=== PATIENT | female | born 1995 | race Hispanic/Latino ===

== ENCOUNTER 2017-03-26 11:52 | Emergency (ER) | payer OTHER ==
[~2017-03-26] VITALS: Ht 162.6 cm; Wt 63.2 kg
[2017-03-26 13:38] LABS: BASO # 0.1 K/mm3 (0.0-0.2); BASO % 0.9 % (0.0-1.0); EOS # 0.2 K/mm3 (0.0-0.50); LARGE UNSTAINED CELL # 0.2 K/mm3 (0.0-0.4); LARGE UNSTAINED CELL % 2.2 % (0.0-4.0); LYMPH % 38.7 % (24.0-44.0); MEAN CORPUSCULAR HGB CONC 34.4 g/dl (32.0-36.5); MONO # 0.5 K/mm3 (0.0-0.8); MONO % 6.3 % (0.0-5.0); NEUTROPHILS # 3.7 K/mm3 (1.8-7.7); NEUTROPHILS % 49.8 % (36.0-66.0); PLATELET COUNT, AUTOMATED 334 k/mm3 (150-450); RED CELL DISTRIBUTION WIDTH 12.1 % (11.5-14.5); WHITE BLOOD COUNT 7.4 K/mm3 (4.0-10.0)
[2017-03-26 13:46] LABS: ANION GAP 8 MEQ/L (8-16); BLOOD UREA NITROGEN 14 MG/DL (7-18); CARBON DIOXIDE LEVEL 24 MEQ/L (21-32); CHLORIDE LEVEL 105 MEQ/L (98-107); CREATININE FOR GFR 0.93 MG/DL (0.55-1.02); GLOMERULAR FILTRATION RATE > 60.0 (>60); GLUCOSE, FASTING 81 MG/DL (70-105); POTASSIUM SERUM 3.6 MEQ/L (3.5-5.1); SODIUM LEVEL 137 MEQ/L (136-145)
[2017-03-26] MEDS ORDERED: ANUS2.5C2 PR (14:26)
[2017-03-26] MEDS ORDERED: ANUS25SU PR (14:34)
[2017-03-26 14:42] VITALS: BP 106/73
[2017-07-09] MEDS ORDERED: PROZ40CA PO (12:39)
== END 2017-03-26 14:38 | disposition home or self-care (01) ==
LOC: M ED 11:52
DX: K64.4 Residual hemorrhoidal skin tags (principal); K62.5 Hemorrhage of anus and rectum; K59.00 Constipation, unspecified; R10.30 Lower abdominal pain, unspecified

== ENCOUNTER → 2018-06-24 18:12 | Emergency (ER) | payer OTHER ==
[2018-06-24 16:05] LABS: HEMOGLOBIN 12.9 g/dl (12.0-15.5); MEAN CORPUSCULAR HEMOGLOBIN 32.8 pg (27.0-33.0); MEAN CORPUSCULAR HGB CONC 34.9 g/dl (32.0-36.5); MEAN CORPUSCULAR VOLUME 94.1 fl (80.0-96.0); PLATELET COUNT, AUTOMATED 300 10^3/uL (150-450); RED BLOOD COUNT 3.93 10^6/uL (4.00-5.40); RED CELL DISTRIBUTION WIDTH 11.7 % (11.5-14.5); WHITE BLOOD COUNT 10.2 10^3/uL (4.0-10.0)
[2018-06-24 16:09] LABS: KETONE, URINE AUTO RFX NEGATIVE (NEGATIVE); LEUKOCYTE ESTERASE UR AUTO RFX NEGATIVE (NEGATIVE); MUCUS, URINE RFX SMALL (NEGATIVE); NITRITE, URINE AUTO RFX NEGATIVE (NEGATIVE); RBC, URINE AUTO RFX 6 /HPF (0-3); SPECIFIC GRAVITY UR AUTO RFX 1.024 (1.002-1.035); SQUAM EPITHELIAL CELL UR AURFX 1 /HPF (0-6); WBC, URINE AUTO RFX 0 /HPF (0-3)
[2018-06-24 16:33] LABS: ANION GAP 8 MEQ/L (8-16); BLOOD UREA NITROGEN 9 MG/DL (7-18); CALCIUM LEVEL 8.3 MG/DL (8.5-10.1); CARBON DIOXIDE LEVEL 26 MEQ/L (21-32); CHLORIDE LEVEL 108 MEQ/L (98-107); CREATININE FOR GFR 0.86 MG/DL (0.55-1.30); GLOMERULAR FILTRATION RATE > 60.0 (>60); GLUCOSE, FASTING 125 MG/DL (70-100); HCG, SERUM QUANTITATIVE 331 MIU/ML; POTASSIUM SERUM 3.6 MEQ/L (3.5-5.1); SODIUM LEVEL 142 MEQ/L (136-145)
== END | disposition home or self-care (01) ==
LOC: M ED 18:12
DX: O03.4 Incomplete spontaneous abortion without complication (principal)
CPT/HCPCS: 76801

== ENCOUNTER 2019-03-29 18:59 | Emergency (ER) | payer OTHER ==
[~2019-03-29] VITALS: Ht 162.6 cm; Wt 59.1 kg
[~2019-03-29 18:59] MED LIST: ANUS2.5C2 PR; ANUS25SU PR; PROZ40CA PO
[2019-03-29 19:34] LABS: BASO # 0.1 10^3/uL (0.0-0.2); BASO % 0.7 % (0.0-1.0); EOS # 0.1 10^3/uL (0.0-0.50); EOS % 1.3 % (0.0-3.0); HEMATOCRIT 37.9 % (36.0-47.0); HEMOGLOBIN 13.1 g/dl (12.0-15.5); LYMPH # 3.6 10^3/uL (1.5-6.5); LYMPH % 41.4 % (24.0-44.0); MEAN CORPUSCULAR HEMOGLOBIN 32.9 pg (27.0-33.0); MEAN CORPUSCULAR HGB CONC 34.6 g/dl (32.0-36.5); MEAN CORPUSCULAR VOLUME 95.2 fl (80.0-96.0); MONO # 0.8 10^3/uL (0.0-0.8); MONO % 8.9 % (0.0-5.0); NEUTROPHILS # 4.1 10^3/uL (1.8-7.7); NEUTROPHILS % 47.4 % (36.0-66.0); PLATELET COUNT, AUTOMATED 277 10^3/uL (150-450); RED BLOOD COUNT 3.98 10^6/uL (4.00-5.40); WHITE BLOOD COUNT 8.6 10^3/uL (4.0-10.0)
[2019-03-29 20:13] LABS: ALT/SGPT 17 U/L (12-78); BILIRUBIN,DIRECT < 0.1 MG/DL (0.0-0.2); BILIRUBIN,TOTAL 0.3 MG/DL (0.2-1.0); BLOOD UREA NITROGEN 11 MG/DL (7-18); CALCIUM LEVEL 9.2 MG/DL (8.5-10.1); CARBON DIOXIDE LEVEL 27 MEQ/L (21-32); CHLORIDE LEVEL 106 MEQ/L (98-107); CREATININE FOR GFR 0.88 MG/DL (0.55-1.30); GLOMERULAR FILTRATION RATE > 60.0 (>60); GLUCOSE, FASTING 89 MG/DL (70-100); LIPASE 129 U/L (73-393); POTASSIUM SERUM 3.5 MEQ/L (3.5-5.1); SODIUM LEVEL 141 MEQ/L (136-145); TOTAL PROTEIN 7.2 GM/DL (6.4-8.2)
[2019-03-29 20:14] LABS: HCG, SERUM QUALITATIVE NEGATIVE (NEGATIVE)
[2019-03-29] MEDS ORDERED: ISOVUE-370 76% 100ML VIAL (Q9967) As Ordered ONE (22:35)
[2019-03-29 22:57] LABS: CHLAMYDIA DNA AMPLIFICATION NEGATIVE (NEGATIVE); GC DNA AMPLIFICATION NEGATIVE (NEGATIVE)
--- NOTE | 2019-03-29 23:51 | REPVR ---
EXAM: CT Abdomen and Pelvis With Contrast EXAM DATE/TIME: 03/29/2019 10:40 PM CLINICAL HISTORY: 23 years old, female; Abdominal pain; Localized; Right lower quadrant (rlq); Additional info: Rlq pain TECHNIQUE: Imaging protocol: Axial computed tomography images of the abdomen and pelvis with intravenous contrast. Coronal and sagittal reformatted images were created and reviewed. Radiation optimization: All CT scans at this facility use at least one of these dose optimization techniques: automated exposure control; mA and/or kV adjustment per patient size (includes targeted exams where dose is matched to clinical indication); or iterative reconstruction. Contrast material: ISOVUE 370; Contrast volume: 100 ml; Contrast route: IV; COMPARISON: CT ABD/PEL W/IV CONTRAST ONLY 07/09/2017 4:27 PM FINDINGS: Liver: Normal. No mass. Gallbladder and bile ducts: Normal. No calcified stones. No ductal dilation. Pancreas: Normal. No ductal dilation. Spleen: Normal. No splenomegaly. Adrenals: Normal. No mass. Kidneys and ureters: Normal. No hydronephrosis. Stomach and bowel: Normal. No obstruction. No mucosal thickening. Appendix: Normal appendix. Intraperitoneal space: Normal. No free air. No significant fluid collection. Vasculature: Prominent vascular structures in the left parametrium may represent varices. Findings can be associated with pelvic congestion syndrome. Lymph nodes: Normal. No enlarged lymph nodes. Bladder: Unremarkable as visualized. Reproductive: See Vasculature Finding. Bones/joints: No acute fracture. No dislocation. Soft tissues: Unremarkable. IMPRESSION: 1. Prominent vascular structures in the left parametrium may represent varices. Findings can be associated with pelvic congestion syndrome. 2. Normal appendix. Electronically signed by: Augustine Dior On 03/29/2019 23:51:19 PM
[2019-03-30] MEDS ORDERED: KETO10TAB PO (00:05)
[2019-03-30] MEDS ORDERED: KETOROLAC 30 MG/ML VIAL (J1885) IV ONE (00:15)
[2019-03-30 00:30] VITALS: BP 114/77
== END 2019-03-30 00:31 | disposition home or self-care (01) ==
LOC: M ED 18:59
DX: N94.89 Other specified conditions associated with female genital organs and menstrual cycle (principal)
CPT/HCPCS: 74177; 80048; 80076; 81001; 83690; 84703; 85025; 87491; 87591; 96374; 99284; J1885; Q9967

== ENCOUNTER 2019-04-06 13:19 | Emergency (ER) | payer OTHER ==
[~2019-04-06] VITALS: Ht 162.6 cm; Wt 63.5 kg
[~2019-04-06 13:19] MED LIST changes: +KETO10TAB PO
[2019-04-06] MEDS ORDERED: diphenhydrAMINE 25 MG CAP PO ONE (17:45)
[2019-04-06] MEDS ORDERED: KETOROLAC 60 MG/2 ML VIAL (J1885) IM ONE (17:45)
[2019-04-06] MEDS ORDERED: METOCLOPRAMIDE 10 MG TAB PO ONE (17:45)
[2019-04-06] MEDS ORDERED: REGL10TA6 PO (18:30)
[2019-04-06] MEDS ORDERED: KETO10TAB PO (18:30)
[2019-04-06 18:37] VITALS: BP 118/79
== END 2019-04-06 18:39 | disposition home or self-care (01) ==
LOC: M ED 13:19
DX: R51 Headache (principal); H92.01 Otalgia, right ear; I88.9 Nonspecific lymphadenitis, unspecified
CPT/HCPCS: 96372; 99283; J1885

== ENCOUNTER 2019-05-16 07:17 | Emergency (ER) | payer OTHER ==
[~2019-05-16] VITALS: Ht 160 cm; Wt 59.1 kg
[~2019-05-16 07:17] MED LIST changes: +REGL10TA6 PO
[2019-05-16 07:18] VITALS: BP 126/79
[2019-05-16 07:56] LABS: BASO % 0.4 % (0.0-1.0); EOS # 0.1 10^3/uL (0.0-0.50); EOS % 0.9 % (0.0-3.0); HEMATOCRIT 36.1 % (36.0-47.0); HEMOGLOBIN 12.6 g/dl (12.0-15.5); LYMPH # 2.4 10^3/uL (1.5-6.5); LYMPH % 35.7 % (24.0-44.0); MEAN CORPUSCULAR HEMOGLOBIN 33.1 pg (27.0-33.0); MEAN CORPUSCULAR HGB CONC 34.9 g/dl (32.0-36.5); MEAN CORPUSCULAR VOLUME 94.8 fl (80.0-96.0); MONO # 0.6 10^3/uL (0.0-0.8); MONO % 8.5 % (0.0-5.0); NEUTROPHILS # 3.7 10^3/uL (1.8-7.7); NEUTROPHILS % 54.2 % (36.0-66.0); PLATELET COUNT, AUTOMATED 272 10^3/uL (150-450); RED BLOOD COUNT 3.81 10^6/uL (4.00-5.40); WHITE BLOOD COUNT 6.8 10^3/uL (4.0-10.0)
[2019-05-16 08:19] LABS: BLOOD UREA NITROGEN 9 MG/DL (7-18); CALCIUM LEVEL 8.4 MG/DL (8.5-10.1); CARBON DIOXIDE LEVEL 25 MEQ/L (21-32); CHLORIDE LEVEL 109 MEQ/L (98-107); CREATININE FOR GFR 0.86 MG/DL (0.55-1.30); GLOMERULAR FILTRATION RATE > 60.0 (>60); GLUCOSE, FASTING 66 MG/DL (70-100); HCG, SERUM QUANTITATIVE 846 MIU/ML; POTASSIUM SERUM 3.4 MEQ/L (3.5-5.1); SODIUM LEVEL 141 MEQ/L (136-145)
[2019-05-16] MEDS ORDERED: POTASSIUM CHLORIDE 10 MEQ SR TABLET PO ONE (09:30)
--- NOTE | 2019-05-16 10:11 | REP ---
Clinical: Pelvic pain with positive . Technique: Transabdominal and transvaginal first trimester obstetrical ultrasound with color Doppler evaluation. Findings: Normal anteverted uterus measures 8.2 x 3.9 x 4.6 cm. Endometrial complex is thickened to 15 mm. No intrauterine identified. Bilateral ovaries are normal in appearance and vascularity without torsion. Right ovary measures 3.0 x 1.3 x 1.8 cm (RI 0.57). Left ovary measures 3.8 x 3.1 x 3.5 cm (RI 0.45) with 2.7 cm complex cyst possible corpus luteum. Trace pelvic free fluid is nonspecific. Impression: 1. No intrauterine identified. Correlation with serial HCG levels recommended. Electronically Signed by Aaron Chavez MD 05/16/2019 10:02 A
[2019-05-16 10:29] LABS: CHLAMYDIA DNA AMPLIFICATION NEGATIVE (NEGATIVE); GC DNA AMPLIFICATION NEGATIVE (NEGATIVE)
== END 2019-05-16 11:50 | disposition home or self-care (01) ==
LOC: M ED 07:17
DX: O20.0 Threatened abortion (principal)

== ENCOUNTER → 2019-05-19 | Outpatient (CLI) | payer OTHER | LOC: M LAB 07:59 | PROVIDERS: ATTEND Emergency Medicine | DX: O20.0 Threatened abortion (principal); Z3A.00 Weeks of gestation of pregnancy not specified ==

== ENCOUNTER 2019-12-02 10:51 | Outpatient (CLI) | payer OTHER ==
[~2019-12-02] VITALS: Ht 162.6 cm; Wt 76.9 kg
[2019-12-02] MEDS ORDERED: CALC500C15 PO (10:56)
[2019-12-02] MEDS ORDERED: PRENTAB9 PO (10:56)
[2019-12-02 11:05] VITALS: BP 112/67
[2019-12-02 12:18] VITALS: BP 111/69
== END 2019-12-02 12:19 | disposition other institution (70) ==
LOC: M LDO 10:51
PROVIDERS: ATTEND Advanced Practice Midwife
DX: O99.89 Other specified diseases and conditions complicating pregnancy, childbirth and the puerperium (principal); Z3A.32 32 weeks gestation of pregnancy; R07.89 Other chest pain
CPT/HCPCS: 59025; G0378; G0463

== ENCOUNTER 2019-12-02 12:31 | Emergency (ER) | payer OTHER ==
[~2019-12-02] VITALS: Ht 162.6 cm; Wt 76.4 kg
[~2019-12-02 12:31] MED LIST changes: +CALC500C15 PO; +PRENTAB9 PO
[2019-12-02] MEDS ORDERED: ACETAMINOPHEN TAB 650MG DOSE (2X325MG) PO ONE (13:00)
[2019-12-02 13:35] LABS: BASO % 0.2 % (0.0-1.0); EOS # 0.1 10^3/uL (0.0-0.5); EOS % 0.7 % (0.0-3.0); HEMATOCRIT 35.6 % (36.0-47.0); HEMOGLOBIN 12.1 g/dl (12.0-15.5); LYMPH # 2.7 10^3/uL (1.5-5.0); LYMPH % 24.8 % (24.0-44.0); MEAN CORPUSCULAR HEMOGLOBIN 32.7 pg (27.0-33.0); MEAN CORPUSCULAR VOLUME 96.2 fl (80.0-96.0); MONO # 0.9 10^3/uL (0.0-0.8); MONO % 7.9 % (0.0-5.0); NEUTROPHILS # 7.1 10^3/uL (1.5-8.5); PLATELET COUNT, AUTOMATED 205 10^3/uL (150-450); WHITE BLOOD COUNT 10.8 10^3/uL (4.0-10.0)
[2019-12-02 13:53] LABS: INR 1.01; PARTIAL THROMBOPLASTIN TIME 25.9 SECONDS (25.0-38.4)
[2019-12-02 13:56] LABS: D-DIMER QUANT 550.79 ng/ml (<500)
[2019-12-02 14:00] LABS: ALBUMIN 3.3 GM/DL (3.2-5.2); ALT/SGPT 20 U/L (12-78); BILIRUBIN,DIRECT < 0.1 MG/DL (0.0-0.2); BILIRUBIN,TOTAL 0.2 MG/DL (0.2-1.0); BLOOD UREA NITROGEN 5 MG/DL (7-18); CALCIUM LEVEL 9.1 MG/DL (8.5-10.1); CARBON DIOXIDE LEVEL 21 MEQ/L (21-32); CHLORIDE LEVEL 109 MEQ/L (98-107); CK-MB VALUE MASS < 1.0 NG/ML (<3.6); CPK CREATINE PHOSPHOKINASE 75 U/L (26-192); CREATININE FOR GFR 0.51 MG/DL (0.55-1.30); FREE T4 0.77 NG/DL (0.76-1.46); GLOMERULAR FILTRATION RATE > 60.0 (>60); GLUCOSE, FASTING 78 MG/DL (70-100); LIPASE 118 U/L (73-393); MB/CK RELATIVE INDEX 1.33 (< OR =4); POTASSIUM SERUM 3.5 MEQ/L (3.5-5.1); SODIUM LEVEL 138 MEQ/L (136-145); TROPONIN I < 0.02 NG/ML (< 0.10)
--- NOTE | 2019-12-02 14:24 | REP ---
Duplex extremity venous ultrasound: Bilateral lower extremities. History: , chest pain. Evaluate for DVT. Findings: The deep veins are anechoic and fully compressible from the groin to the popliteal fossa in the left and right lower extremity. Color flow imaging is homogeneous. Spectral Doppler interrogation demonstrates intact respiratory variation in flow and normal manual augmentation of flow. There is no evidence of deep vein thrombosis. Impression: Negative bilateral lower extremity duplex venous ultrasound. No evidence of deep vein thrombosis. Electronically Signed by Rhys Milner MD 12/02/2019 02:16 P
[2019-12-02 16:04] LABS: CK-MB VALUE MASS < 1.0 NG/ML (<3.6); CPK CREATINE PHOSPHOKINASE 68 U/L (26-192); MB/CK RELATIVE INDEX 1.47 (< OR =4); TROPONIN I < 0.02 NG/ML (< 0.10)
[2019-12-02 16:15] VITALS: BP 115/72
--- NOTE | 2019-12-02 17:39 | ECGEPIP ---
[facility] - ED Test Date: 2019-12-02 Pat Name: KRYS LYONS Department: Room: - Gender: Female Balance Wheel Hand Filer: bess : 1995 Requested By: Alison Torres Order Number: [id number] Reading MD: Alison Torres Measurements Intervals [place] Rate: 82 P: 40 MD: 140 QRS: 20 QRSD: 89 T: 19 QT: 362 QTc: 423 Interpretive Statements SINUS RHYTHM MODERATE T-WAVE ABNORMALITY, CONSIDER ANTERIOR ISCHEMIA NO PRIOR Electronically Signed on 12-02-2019 17:39:13 EDT by Alison Torres
--- NOTE | 2019-12-02 17:40 | ECGEPIP ---
[facility] - ED Test Date: 2019-12-02 Pat Name: KRYS LYONS Department: Room: - Gender: Female Process Inspector: : 1995 Requested By: YASMINE Bernabe Order Number: [id number] Reading MD: Alison Trores Measurements Intervals [place] Rate: 74 P: 44 RI: 173 QRS: 21 QRSD: 90 T: 15 QT: 371 QTc: 412 Interpretive Statements SINUS RHYTHM MODERATE T-WAVE ABNORMALITY, CONSIDER ANTERIOR ISCHEMIA, SIMILAR 12/02/19 12:57 Electronically Signed on 12-02-2019 17:40:05 EDT by Alison Torres
== END 2019-12-02 16:53 | disposition home or self-care (01) ==
LOC: M ED 12:31
DX: O26.893 Other specified pregnancy related conditions, third trimester (principal); Z3A.33 33 weeks gestation of pregnancy; Z79.899 Other long term (current) drug therapy

== ENCOUNTER 2020-01-17 01:06 | Inpatient (IN) | payer OTHER ==
[2020-01-17] VITALS (44 sets, daily range): BP systolic 95–149; BP diastolic 53–87
[~2020-01-17] VITALS: Ht 162.6 cm; Wt 80.7 kg
--- NOTE | 2020-01-17 02:19 | IPNPDOC ---
Text Note Date of Service The patient was seen on 01/17/20. NOTE Patient is 24yo G1 P 0 at 39.3wks. C/o irregular ctx since sex. No loss of fluid or bleeding. Good movement. PE: VS WNL GEN NAD, Comfortable SVE: 2/50/-2 FHT: Category 2, 130, reactive, decel in triage. irritability. A/P: Will obtain a BPP to ensure status then likely induce due to inducible cervix, 39wks, and decel. Will monitor for a bit first. VS,Fishbone, I+O VS, Fishbone, I+O Vital Signs Date Time Temp Pulse Resp B/P (MAP) Pulse Ox O2 Delivery O2 Flow Rate FiO2 01/17/20 01:22 98.0 78 120/85 (97) Radha Alvarez MD January 17, 2020 02:19
--- NOTE | 2020-01-17 03:03 | REPVR ---
PROCEDURE INFORMATION: Exam: US Biophysical Profile Without Non-Stress Test Exam date and time: 01/17/2020 2:49 AM Age: 24 years old Clinical indication: Other: Nonreactive stress test; ; Additional info: nst nonreactive, come to L TECHNIQUE: Imaging protocol: US biophysical profile without non-stress testing. COMPARISON: CT ABD/PEL W/IV CONTRAST ONLY 03/29/2019 10:39 PM FINDINGS: Breathin/2 Gross body movements: 2/2 tone: 2/2 Qualitative amniotic fluid: 0/2 Biophysical Profile Score: 6/8 Gestation: Single intrauterine fetus. Heart rate: heartbeat of 134 bpm. Presentation: Cephalic presentation. Placenta: The placenta is on the right laterally. Amniotic fluid: No amniotic fluid with IRAIDA of 0. Umbilical artery Doppler: S/D ratio of the cord measuring 2.0. IMPRESSION: 1. Single live intrauterine fetus in cephalic presentation. 2. Oligohydramnios with IRAIDA of 0. 3. Biophysical profile score of 6/8 which is diminished due to low IRAIDA. Electronically signed by: Dnonie Goodwin On 01/17/2020 03:02:03 AM
[2020-01-17] MEDS ORDERED: BUTORPHANOL 2 MG/ML INJ (J0595) IV ONE (03:45)
[2020-01-17] MEDS ORDERED: PROMETHAZINE INJ 25 MG/ML VIAL (J2550) IV ONE (03:45)
[2020-01-17 04:07] LABS: HEMATOCRIT 34.7 % (36.0-47.0); MEAN CORPUSCULAR HEMOGLOBIN 32.2 pg (27.0-33.0); MEAN CORPUSCULAR HGB CONC 34.6 g/dl (32.0-36.5); PLATELET COUNT, AUTOMATED 232 10^3/uL (150-450); RED BLOOD COUNT 3.73 10^6/uL (4.00-5.40); WHITE BLOOD COUNT 10.2 10^3/uL (4.0-10.0)
--- NOTE | 2020-01-17 08:42 | HPEPDOC ---
Obstetrical History & Physical General Date of Admission January 17, 2020 at 03:20 History of Present Illness Patient is a 24yo at 39.3wks by LMP c/w 7wk US with Oligohydramnios. Patient presented with contractions since sexual intercourse. SVE was 2/50/-2. She had a decel which prompted a BPP which was 6/8 due to IRAIDA of 0. Since fetus has been reassuring. God movement. No bleeding or loss of fluid. 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: History of STD (Chlamydia 2017) Past Medical History Medical History Depression Surgical History: Denies/None Family History Significant Family History: No pertinent family hx Social History Marital Status: Family situation: Spouse/partner home Psychosocial History: Depression * Smoker: non-smoker Alcohol: Denies Drugs: denies Abuse Violence Screening Have you been hit/kicked/slapp: No Have you been sexually assault: No Imunizations Tdap status: current Influenza Status: current Allergies Coded Allergies: No Known Allergies (Unverified , 03/29/19) Medications Scheduled No.137/Iron/Folic Acd ( Vitamin Tablet) 1 Each Tablet, 1 TAB PO DAILY Scheduled PRN Calcium Carbonate (Antacid) 200 Mg Tab.chew, 500 MG PO PRN PRN for INDIGESTION Physical Examination Physical Examination GENERAL: Alert and oriented times three. BREAST: . ABDOMEN: Gravid and non-tender to touch. FETUS: Is vertex (VTX) by sterile vaginal examination (SVE), fetus is 3500gm by [place]. HEART RATE: Regular rate and rhythm. LUNGS: Clear to auscultation (CTA). EXTREMITIES: No edema. Vital Signs/I&O Vital Signs Date Time Temp Pulse Resp B/P (MAP) Pulse Ox O2 Delivery O2 Flow Rate FiO2 01/17/20 05:48 16 01/17/20 05:03 75 113/68 (83) 01/17/20 01:22 98.0 Laboratory Data 24H LABS Laboratory Tests 2 01/17/20 03:56: Nucleated Red Blood Cells % (auto) 0.0 CBC/BMP Laboratory Tests 01/17/20 03:56 Pertinent Laboratoy Data Blood Type: A+ RBC Antibody Screen: Negative HIV: Negative Hepatitis B: Negative Rapid Plasma Reagin: Nonreactive Rubella: Immune Varicella: Nonreactive Chlamydia/Gonorrhea: Negative Group B Streptococcus: Negative Quad Screen Test: Negative Glucose Tolerance Test: 114 Anatomy Ultrasound Ultrasound Date: Jul 20, 2019 Placenta Location: Posterior Normal Anatomy: Yes Placenta Previa: No Steroid Therapy Steroid Therapy: No Vaginal Examination Dilation: 4 cm Effacement: 90% Station: 0 Cervical Position: Middle Assessment Heart Rate (FHR): 130 Variability: Moderate Accelerations: Positive Decelerations: None Tocometer Contractions: Yes Frequency: regular, every 2-5 min. Multi-drug resistant Organism: No history of MDRO Assessment/Plan Assessment Patient is a 24yo at 39.3wks by LMP c/w 7wk US with Oligohydramnios. Admit for oligohydramnios and expect delivery by . Pain management per patient preference, which was discussed with her. I discussed risks of with patient of failure with section, distress, bleeding, infection, , vaginal or perineal or neighboring organ tear. Currently, fetus is reassuring. GBS is negative, no need for antibiotics. 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 Senior Policy Analyst and consent. Diet: Clears. Group B Streptococcus (GBS) negative. Labs and intravenous (IV) per unit protocol. Counseled on Pitocin, AROM, and IUPC with amnioinfusion for augmentation if needed. Lactated Ringers (LR): Bolus 500 mL, then at 125 mL/hr. Anticipate normal spontaneous delivery (). C-S as appropriate. Pain management per patient desires. Radha Alvarez MD January 17, 2020 08:42
[2020-01-17] MEDS ORDERED: FENTANYL 2MCG/ML ROPIVACAINE 0.2% IN 0.9% NACL 100ML IVBAG As Ordered ONE (08:47)
[2020-01-17] MEDS ORDERED: REFRIGERATOR IV KEYS XX PRN (10:15)
[2020-01-17] MEDS ORDERED: EPIDURAL/PCA KEYS XX PRN (10:15)
[2020-01-17] MEDS ORDERED: diphenhydrAMINE 50MG/ML VIAL (J1200) IV PRN (10:15)
[2020-01-17] MEDS ORDERED: EPIDURAL COMMENT XX SCH (10:15)
[2020-01-17] MEDS ORDERED: FENTANYL/ROPIVACAINE/NACL BAG 100 ML EPIDURAL SCH (10:15)
[2020-01-17] MEDS ORDERED: NALOXONE INJ 0.4MG/1ML VIAL (J2310 PER 1MG) IV PRN (10:15)
[2020-01-17] MEDS ORDERED: ONDANSETRON 4MG/2ML VIAL IV PRN (10:15)
[2020-01-17] MEDS ORDERED: LACTATED RINGER'S 1000 ML IV PRN (10:15)
[2020-01-17] MEDS ORDERED: ePHEDrine SULFATE 25 MG/5 ML(5MG/ML) SYRINGE IV PRN (10:15)
--- NOTE | 2020-01-17 10:50 | IPNPDOC ---
Text Note Date of Service The patient was seen on 01/17/20. NOTE Patient comfortable with epidural. FHT Category 1, 140s, reactive, no decels, ctx q2-3min. SVE 5/90/0. AROM clear minimal. Placed IUPC. A/P: Fetus reassuring and labor progressing. Will start amnioinfusion with 500mL bolus then 100mL/hr. VS,Fishbone, I+O VS, Fishbone, I+O Laboratory Tests 01/17/20 03:56 Vital Signs Date Time Temp Pulse Resp B/P (MAP) Pulse Ox O2 Delivery O2 Flow Rate FiO2 01/17/20 08:06 97.6 87 20 103/64 (77) Radha Alvarez MD January 17, 2020 10:50
[2020-01-17] MEDS ORDERED: OXYTOCIN 30 UNITS IN 0.9% NaCl 500ML IV BAG (J2590) As Ordered ONE (16:18)
[2020-01-17 17:05] LABS: CORD GAS ABE V -5.5; CORD GAS HCO3 V 19.5 MEQ/L; CORD GAS O2 SAT V 68.2 %; CORD GAS PCO2 V 37.1 mmHg; CORD GAS PH V 7.338 UNITS; CORD GAS PO2 V 30.4 mmHg; CORD GAS SBC V 19.2 MEQ/L; CORD GAS TCO2 V 20.6 MEQ/L
[2020-01-17] MEDS ORDERED: OXYTOCIN DRIP 30 UNITS in IV 1 EA IV SCH (17:05)
[2020-01-17 17:07] LABS: CORD GAS ABE A -7.6; CORD GAS HCO3 A 20.8 MEQ/L; CORD GAS O2 SAT A 54.5 %; CORD GAS PCO2 A 52.5 mmHg; CORD GAS PH A 7.216 UNITS; CORD GAS PO2 A 27.3 mmHg; CORD GAS SBC A 17.4 MEQ/L; CORD GAS TCO2 A 22.4 MEQ/L
--- NOTE | 2020-01-17 17:14 | DNPDOC ---
[facility] Delivery Note Delivery Note DATE OF DELIVERY: 01/17/2020 PREDELIVERY DIAGNOSIS: 39 3/7 weeks' gestation and labor. POST DELIVERY DIAGNOSIS: Delivered. PROCEDURE: Spontaneous vaginal delivery [facility] DEPARTMENT HEAD: Dr. Alvarez ANESTHESIA: Epidural. ESTIMATED BLOOD LOSS: 300 mL. FINDINGS: 6 pound 0 ounce 3020gm male infant, Score 7/9, nuchal cord times 0. DELIVERY SUMMARY: Patient is a 24-year-old 2 now para 1 who was admitted to labor and delivery for active labor for 8hours. Patient AROM clear around 1037. Baby boy head was delivered without difficulty over intact perineum in AALIYAH position at 1630 with shoulder dystocia of 55sec reduced with McRobert's. The nose and mouth were bulb suctioned. No nuchal cord was noted. Infant was handed to pediatric team and shoulder and clavicle were examined and found to be normal with normal neurological exam. Cord gases were performed. Pitocin bolus was started. Perineum and vagina was inspected and found to have a 2nd degree] laceration. This was repaired with 0 Vicryl to reinforce the EAS and then 2-0 chromic. The placenta was then delivered at 1654 spontaneously intact. Cord had a 3 vessel cord. EBL was 300mL. The vagina and perineum were reinspected and no further lacerations were found and hemostasis was good. Fundus was firm. Patient tolerated delivery well. Radha Alvarez MD January 17, 2020 17:14
[2020-01-17] MEDS ORDERED: SIMETHICONE 80 MG CHEW TAB PO PRN (17:15)
[2020-01-17] MEDS ORDERED: DIBUCAINE 1% OINTMENT 30GM TOP PRN (17:15)
[2020-01-17] MEDS ORDERED: CALCIUM CARBONATE 500 MG CHEW U/D PO PRN (17:15)
[2020-01-17] MEDS ORDERED: RHOGAM 300 MCG (1500 IU) INJ (J2790) IM SCH (17:15)
[2020-01-17] MEDS ORDERED: diphenhydrAMINE 25MG CAP PO PRN (17:15)
[2020-01-17] MEDS ORDERED: MEASLES,MUMPS,RUBELLA VACCINE INJ (MMR-II) (90707) SC SCH (17:15)
[2020-01-17] MEDS ORDERED: METHYLERGONOVINE MALEATE 0.2 MG TAB PO PRN (17:15)
[2020-01-17] MEDS ORDERED: MOM 30ML SUSPENSION UDC PO PRN (17:15)
[2020-01-17] MEDS: IBUPROFEN 800 MG TAB PO PRN (17:33)
[2020-01-17] MEDS: ACETAMINOPHEN 500 MG TAB PO PRN (19:30)
[2020-01-17] MEDS: DOCUSATE SODIUM 100 MG CAP PO SCH (21:53)
[2020-01-18 05:50] VITALS: BP 111/72
[2020-01-18] MEDS: ACETAMINOPHEN 500 MG TAB PO PRN ×2 (06:31→17:01)
--- NOTE | 2020-01-18 07:00 | IPNPDOC ---
Progress Note Date of Service: January 18, 2020 Day#: 1 Progress Note SUBJECT: Patient is a 24-year-old 2 now Para 1 status post uncomplicated spontaneous vaginal delivery with post 2nd degree laceration and repair, doing well day # 1. She has been ambulating, voiding spontaneously without issue and tolerating regular diet. Breast feeding without issue. Reports lochia is like a normal period. Patient is ambulating well. Reports some cramping with . Decreased pain. OBJECTIVE: VITAL SIGNS: Within normal limits, afebrile. Alert and oriented times three. Breasts without masses or erythema Breath sounds clear to auscultation. Heart rate: Regular rate and rhythm, no murmurs, rubs or gallops. Abdomen: Fundus firm at U-2. Soft, NTTP. Perineum intact and without edema and Minimal lochia. LE without edema and nontender ASSESSMENT: Patient is a 24-year-old 2 now Para 1 status post uncomplicated spontaneous vaginal delivery with post 2nd degree laceration and repair, doing well day # 1. Vitals within normal limits, afebrile, hemodynamically stable with no evidence of infection. PLAN: 1. Continue care 2. Tylenol and Motrin for pain. 3. Encourage breast feeding and ambulation. VS, I&O, 24H, Fishbone Vital Signs/I&O Vital Signs Date Time Temp Pulse Resp B/P (MAP) Pulse Ox O2 Delivery O2 Flow Rate FiO2 01/17/20 13:23 97.8 75 18 106/74 (85) Laboratory Data 24H LABS Laboratory Tests 2 01/17/20 03:56: Nucleated Red Blood Cells % (auto) 0.0 01/17/20 08:35: Serology Scanned Report Hepatitis B Testing 01/17/20 16:44: Cord Arterial Blood pH 7.216, Cord Arterial Blood PCO2 52.5, Cord Arterial Blood PO2 27.3, Cord Arterial Blood HCO3 20.8, Cord Arterial Blood Total CO2 22.4, Cord Arterial Blood Base Excess -7.6, Cord Arterial Base Excess (Standard 17.4, Cord Arterial Bld Oxygen Saturation 54.5, Cord Venous Blood pH 7.338, Cord Venous Blood PCO2 37.1, Cord Venous Blood PO2 30.4, Cord Venous Blood HCO3 19.5, Cord Venous Blood Total CO2 20.6, Cord Venous Base Excess (Actual) -5.5, Cord Venous Base Excess (Standard) 19.2, Cord Venous Blood Oxygen Saturation 68.2 CBC/BMP Laboratory Tests 01/17/20 03:56 Radha Alvarez MD January 17, 2020 17:17
[2020-01-18] MEDS: PRENATAL VITAMINS CHEWABLE TABLET PO SCH (09:28)
[2020-01-18] MEDS: DOCUSATE SODIUM 100 MG CAP PO SCH ×2 (09:28→20:24)
[2020-01-18] MEDS: IBUPROFEN 800 MG TAB PO PRN ×2 (11:34→20:25)
[2020-01-18 18:00] VITALS: BP 112/70
[2020-01-19] MEDS: IBUPROFEN 800 MG TAB PO PRN (03:26)
[2020-01-19 06:00] VITALS: BP 115/72
--- NOTE | 2020-01-19 06:46 | IPNPDOC ---
Progress Note Date of Service: January 19, 2020 Day#: 2 Progress Note SUBJECT: Patient is a 24 yo s/p ppd #2. Patient has no concerns today. She has been ambulating, voiding spontaneously without issue and tolerating regular diet. Breast feeding and formula feeding. Reports lochia is light. Not interested in contraceptive. OBJECTIVE: VITAL SIGNS: Within normal limits, afebrile. Alert and oriented times three. Abdomen: Fundus firm at U-2. Soft, NTTP. LE: no edema/erythema/tenderness A/P ppd #2, doing well. encouraged bf and ambulating. discussed contraceptive options and recommend 12 months prior to next . continue with routine ppc. discharge today. Le, DO VS, I&O, 24H, Fishbone Vital Signs/I&O Vital Signs Date Time Temp Pulse Resp B/P (MAP) Pulse Ox O2 Delivery O2 Flow Rate FiO2 01/19/20 06:00 98.0 82 18 115/72 (86) 99 Room Air I&O- Last 24 Hours up to 6 AM 01/19/20 06:00 Intake Total 600 ml Balance 600 ml FIGUEROA GALVAN DO January 19, 2020 06:46
--- NOTE | 2020-01-19 06:50 | OBDS ---
[facility] Obstetrical Discharge Sum. Obstetrical Discharge Summary Date: January 19, 2020 : 2 Term: 1 Pre-term: 0 Abortions: 1 Livin VDRL: Non-Reactive Rh: Positive Rubella: Immune Sex: Male Infant Weight: pounds (6) Anesthesia: Regional Anesthesia A/P, Post Course List any complications Admission diagnosis: GRAVID @ 39+3wks oligohydramnios Discharge diagnosis: Condition at Discharge: Discharge Instructions: Home Activity: as tolerated Diet: regular Medications: filled at [facility] Follow-up: 6-8wks hospital course: patient admitted for induction of labor at 39+3wks for oligohydramnios. She progressed to have a vaginal delivery. course uncomplicated and patient discharged on day #2. FIGUEROA GALVAN DO January 19, 2020 06:50
[2020-01-19] MEDS: ACETAMINOPHEN 500 MG TAB PO PRN (06:51)
[2020-01-19] MEDS: DOCUSATE SODIUM 100 MG CAP PO SCH (09:10)
[2020-01-19] MEDS: PRENATAL VITAMINS CHEWABLE TABLET PO SCH (09:10)
--- NOTE | 2020-01-20 07:20 | IPN ---
DATE: 01/18/2020 This patient and requested circumcision of their male . After discussing risks and benefits of the circumcision, the medical and nonmedical indications, penile block, and aftercare, they expressed understanding of penile block, aftercare, and bleeding. Signed the consent form. All questions were answered. 20-minute discussion. We await the clearance by the mortgage loan specialist.
== END 2020-01-19 12:00 | disposition home or self-care (01) | DRG 807 ==
LOC: M LDO 01:06 → M LDI 03:20 → M OBS 22:10
PROVIDERS: ADMIT Obstetrics & Gynecology; ATTEND Obstetrics & Gynecology
PROC: 10E0XZZ Delivery of Products of Conception, External Approach (ICD-10-PCS; principal; 2020-01-17)
PROC: 0KQM0ZZ Repair Perineum Muscle, Open Approach (ICD-10-PCS; 2020-01-17)
PROC: 10907ZC Drainage of Amniotic Fluid, Therapeutic from Products of Conception, Via Natural or Artificial Opening (ICD-10-PCS; 2020-01-17)
DX: O41.03X0 Oligohydramnios, third trimester, not applicable or unspecified (principal); Z37.0 Single live birth; Z3A.39 39 weeks gestation of pregnancy; O70.1 Second degree perineal laceration during delivery

== ENCOUNTER 2020-03-18 19:48 | Emergency (ER) | payer OTHER ==
[~2020-03-18] VITALS: Ht 162.6 cm; Wt 70.2 kg
[2020-03-18 19:51] VITALS: BP 138/82
[2020-03-18] MEDS ORDERED: PRED10TA2 PO ×2 (20:30→20:40)
== END 2020-03-18 20:42 | disposition home or self-care (01) ==
LOC: M ED 19:48
DX: H93.11 Tinnitus, right ear (principal); H92.03 Otalgia, bilateral

== ENCOUNTER 2020-10-04 10:23 | Emergency (ER) | payer OTHER, SELFPAY ==
[~2020-10-04] VITALS: Ht 162.6 cm; Wt 66.2 kg
[~2020-10-04 10:23] MED LIST changes: +PRED10TA2 PO
[2020-10-04 10:24] VITALS: BP 120/81
[2020-10-04] MEDS ORDERED: ZOLO50TA PO (10:31)
--- OUTSIDE RECORDS SUMMARY | 2020-10-04 10:32 | CCD ---
Author Author [facility] Organization [facility] Address Unknown Phone Unavailable Care Team Providers Care Certified Prosthetist Vice President Name Role Phone Abriss, B Donnie SCHREIBER Unavailable Unavailable Abriss, B Donnie SCHREIBER Unavailable Unavailable Abriss, B Donnie SCHREIBER Unavailable Unavailable Abriss, B Donnie SCHREIBER Unavailable Unavailable Abriss, B Donnie SCHREIBER Unavailable Unavailable Abriss, B Donnie SCHREIBER Unavailable Unavailable Abriss, B Donnie SCHREIBER Unavailable Unavailable Abriss, B Donnie SCHREIBER Unavailable Unavailable Abriss, B Donnie SCHREIBER Unavailable Unavailable Abriss, B Donnie SCHREIBER Unavailable Unavailable Abriss, B Donnie SCHREIBER Unavailable Unavailable Abriss, B Donnie SCHREIBER Unavailable Unavailable Abriss, B Donnie SCHREIBER Unavailable Unavailable Abriss, B Donnie SCHREIBER Unavailable Unavailable Abriss, B Donnie SCHREIBER Unavailable Unavailable Abriss, B Donnie SCHREIBER Unavailable Unavailable Abriss, B Donnie SCHREIBER Unavailable Unavailable Abriss, B Donnie SCHREIBER Unavailable Unavailable Re-disclosure Warning The records that you are about to access may contain information from federally-assisted alcohol or drug abuse programs. If such information is present, then the following federally mandated warning applies: This information has been disclosed to you from records protected by federal confidentiality rules (42 CFR part 2). The federal rules prohibit you from making any further disclosure of this information unless further disclosure is expressly permitted by the written consent of the person to whom it pertains or as otherwise permitted by 42 CFR part 2. A general authorization for the release of medical or other information is NOT sufficient for this purpose. The Federal rules restrict any use of the information to criminally investigate or prosecute any alcohol or drug abuse patient.The records that you are about to access may contain highly sensitive health information, the redisclosure of which is protected by Article 27-F of the [facility] Public Health law. If you continue you may have access to information: Regarding HIV / AIDS; Provided by facilities licensed or operated by the [facility] Office of Mental Health; or Provided by the [facility] Office for People With Developmental Disabilities. If such information is present, then the following [facility] mandated warning applies: This information has been disclosed to you from confidential records which are protected by state law. State law prohibits you from making any further disclosure of this information without the specific written consent of the person to whom it pertains, or as otherwise permitted by law. Any unauthorized further disclosure in violation of state law may result in a fine or half-way sentence or both. A general authorization for the release of medical or other information is NOT sufficient authorization for further disc losure. Encounters Encounter Providers Location Date Indications Data Source(s ) Outpatient Attender: Donnie Johnston/Kalia/Riaz/Catia indl 04/21/2020 09:00:00 AM DEIDRE MCQUEEN ([facility], ) Outpatient 11/13/2019 03:19:00 PM EST [facility] Outpatient 11/13/2019 03:18:00 PM EST [facility] Outpatient 11/13/2019 03:18:00 PM EST [facility] Insurance Providers Payer name Policy type / Coverage type Policy ID Covered democrat ID Covered democrat's relationship to crowe Policy [place] Plan Information [employer] [id number] SP [id number] [employer] [id number] Self [id number] SELF PAY O UNAVAILABLE S UNAVAILA BLE HUMANA [place] O [id number] S [id number] [place] [id number] 18 [id number] EAST ACTIVE DUTY [id number] SP [id number] ACTIVE DUTY [id number] SP [id number] [employer] [place] O [id number] S [id number] N REGIONAL CLAIMS HAY -O/P [id number] 18 [id number] Vital Signs ID Date Data Source UNK Name Value Range Interpretation Code Description Data Source(s) Body weight 66.226 kg 66.226 kg RICHAR ([facility], ) Body mass index (BMI) [Ratio] 25.1 kg/m2 25.1 k g/m2 [facility] ([facility]) Body weight 146.00 [lb_av] 146.00 [lb_av] MEDEN T ([facility]) Body height 64 [in_i] 64 [in_i] [facility] ([facility]) 5'4" Body weight 66.226 kg 66.226 kg [facility] ([facility]) Body mass index (BMI) [Ratio] 25.1 kg/m2 25.1 k g/m2 [facility] ([facility]) Body weight 146.00 [lb_av] 146.00 [lb_av] [facility] Body height 64 [in_i] 64 [in_i] [facility] ([facility]) 5'4"
--- OUTSIDE RECORDS SUMMARY | 2020-10-04 11:40 | CCD ---
Author Author [facility] Organization [facility] Address Unknown Phone Unavailable Care Team Providers Care Fire Controlman Name Role Phone Abriss, B Donnie SCHREIBER [...] is protected by Article [address]-F of the [facility] Public Health law. If you continue you may have access to information: Regarding HIV / AIDS; Provided by facilities licensed or operated by the [facility] Office of Mental Health; or Provided by the [facility] Office for People With Developmental Disabilities. If such information is present, then the following [facility] mandated warning applies: This information has [...] law may result in a fine or long term sentence or both. A general authorization for the release of medical or other information is NOT sufficient authorization for further disc losure. Encounters Encounter Providers Location Date Indications Data Source(s ) Outpatient Attender: Donnie Johnston/Kalia/Riaz/Catia indl 04/21/2020 09:00:00 AM EDT [facility] ([facility], ) Outpatient 11/13/2019 03:19:00 PM EST [facility] Outpatient 11/13/2019 03:18:00 PM EST [facility] Outpatient 11/13/2019 03:18:00 PM [facility] Insurance Providers Payer name Policy type / Coverage type Policy ID Covered democrat ID Covered democrat's relationship to crowe Policy Crowe Plan Information [facility] [id number] [facility] [phone] [employer] [id number] SP [id number] [employer] [id number] Self [id number] SELF PAY O UNAVAILABLE S UNAVAILA BLE [employer] [facility] O [id number] S [id number] [place] [id number] 18 [id number] [employer] [id number] SP [id number] [employer] [id number] SP [id number] [employer] [place] O [id number] S [id number] N [employer]IONAL CLAIMS [place] -O/P [id number] 18 [id number] Vital Signs ID Date Data Source UNK Name Value Range Interpretation Code Description Data Source(s) Body weight 66.226 kg 66.226 kg [facility] ([facility]) Body mass index (BMI) [Ratio] 25.1 kg/m2 25.1 k g/m2 [facility] ([facility]) Body weight 146.00 [lb_av] 146.00 [lb_av] [facility] Body height 64 [in_i] 64 [in_i] [facility] ([facility]) 5'4" Body weight 66.226 kg 66.226 kg [facility] ([facility]) Body mass index (BMI) [Ratio] 25.1 kg/m2 25.1 k g/m2 [facility] ([facility]) Body weight 146.00 [lb_av] 146.00 [lb_av] [facility] Body height 64 [in_i] 64 [in_i] [facility] ([facility]) 5'4"
== END 2020-10-04 12:02 | disposition home or self-care (01) ==
LOC: M ED 10:23
DX: N60.29 Fibroadenosis of unspecified breast (principal); N64.4 Mastodynia; F33.9 Major depressive disorder, recurrent, unspecified; Z79.899 Other long term (current) drug therapy

== ENCOUNTER → 2021-07-12 | Outpatient (CLI) | payer OTHER ==
[~2021-07-12] MED LIST changes: +ZOLO50TA PO
[2021-07-12 16:52] LABS: ALBUMIN 2.9 GM/DL (3.2-5.2); ALT/SGPT 15 U/L (12-78); BILIRUBIN,DIRECT < 0.1 MG/DL (0.0-0.2); BILIRUBIN,TOTAL 0.2 MG/DL (0.2-1.0); TOTAL PROTEIN 6.5 GM/DL (6.4-8.2)
== END ==
LOC: M LAB 14:45
PROVIDERS: ATTEND Registered Nurse Maternal Newborn
DX: E78.70 Disorder of bile acid and cholesterol metabolism, unspecified (principal)

== ENCOUNTER 2021-08-03 04:22 | Inpatient (IN) | payer OTHER ==
[~2021-08-03] VITALS: Ht 163.8 cm; Wt 83.6 kg
[2021-08-03] VITALS (27 sets, daily range): BP systolic 98–139; BP diastolic 55–87
--- OUTSIDE RECORDS SUMMARY | 2021-08-03 05:03 | CCD ---
Author Author [facility] Address Unknown Phone Unavailable Care Team Providers Care Betting Agency Counter Clerk Name Role Phone Audie Martino MD Unavailable Unavailable Audie Martino MD Unavailable Unavailable Audie Martino MD Unavailable Unavailable Audie Martino MD Unavailable Unavailable Audie Martino MD Unavailable Unavailable Audie Martino MD Unavailable Unavailable Dana Candelario MD Unavailable Unavailable AbrDana thomas MD Unavailable Unavailable AbrDana thomas MD Unavailable Unavailable AbrDana thomas MD Unavailable Unavailable AbrDana thomas MD Unavailable Unavailable Dnaa Candelario MD Unavailable Unavailable Dana Candelario MD Unavailable Unavailable Dana Candelario MD Unavailable Unavailable Dana Candelario MD Unavailable Unavailable AbrDana thomas MD Unavailable Unavailable AbrDana thomas MD Unavailable Unavailable AbrDana thomsa MD Unavailable Unavailable AbrDana thomas MD Unavailable Unavailable AbrDana thomas MD Unavailable Unavailable AbrDana thomas MD Unavailable Unavailable AbrDana thomas MD Unavailable Unavailable AbrDana thomas MD Unavailable Unavailable AbrDana thomas MD Unavailable Unavailable AbrDana thomas MD Unavailable Unavailable [facility] Unavailable Unavailable Jenna MARIE MD Unavailable Unavailable Jenna MARIE MD Unavailable Unavailable Jenna MARIE MD Unavailable Unavailable Jenna MARIE MD Unavailable Unavailable Jenna MARIE MD Unavailable Unavailable Jenna MARIE MD Unavailable Unavailable Jenna MARIE MD Unavailable Unavailable Jenna MARIE MD Unavailable Unavailable Jenna MARIE MD Unavailable Unavailable Jenna MARIE MD Unavailable Unavailable Jenna MARIE MD Unavailable Unavailable Re-disclosure Warning The records that [...] is protected by Article 27-F of the [facility] Public Health law. If you continue you may have access to information: Regarding HIV / AIDS; Provided by facilities licensed or operated by the [facility] Office of Mental Health; or Provided by the [facility] Office for People With Developmental Disabilities. If such information is present, then the following [facility] mandated warning applies: This information has been [...] law may result in a fine or longterm sentence or both. A general authorization for the release of medical or other information is NOT sufficient authorization for further disc losure. Encounters Encounter Providers Location Date Indications Data Source(s ) Outpatient Attender: Donnie Johnston/Kalia/Riaz/Catia indl 01/19/2021 09:15:00 AM EDT [facility] ([facility], ) Outpatient Attender: Martin Martino MD ER-LAB 01/09/2021 10:08:00 AM EDT [facility] Emergency Attender: GERMANIA MARIE MDConsultant: CLIN IC WILL 10/23/2020 05:25:00 PM EST - 10/23/2020 06:35:00 PM [facility] Patient discharged. Medications No Information Insurance Providers Payer name Policy type / Coverage type Policy ID Covered green party ID Covered green party's relationship to crowe Policy [place] Plan Information [employer] [id number] Self [id number] [facility] [id number] [facility] [id number] EAST ACTIVE D[employer]Y [id number] SP [id number] [facility] [id number] [facility] [id number] SELF PAY ONLY [id number] SP [id number] EAST HUMANA - O/P [id number] 01 [id number] N REGIONAL CLAIMS [place] -O/P [id number] 18 [id number] EAST [employer] - O/P [id number] 18 [id number] [employer] [id number] S [id number] SELF PAY O UNAVAILABLE [id number] S UNAVAILA BLE HUMANA EAST REG O [id number] S [id number] [facility] [place] [id number] 18 [id number] EAST [employer] DUT[employer] [id number] SP [id number] ACTIVE DUTY [id number] SP [id number] [employer] [place] [facility] O [id number] S [id number] EAST [employer] - O/P [id number] 01 [id number] Problems, Conditions, and Diagnoses Code Display Name Description Problem Type Effective Dates Data Source(s) D50.9 Iron deficiency anemia, unspecified IRON DEFICIE NCY ANEMIA, UNSPECIFIED Diagnosis 01/09/2021 10:08:00 AM [facility] N6310 Unspecified lump in the right breast, un specified quadrant Unspecified lump in the right breast, unspecified quadrant Diagnosis 021 05:25:00 PM [facility] N6320 Unspecified lump in the left breast, uns pecified quadrant Unspecified lump in the left breast, unspecified quadrant Diagnosis 10/23/2020 05:25:00 PM [facility] N644 Mastodynia Mastodynia Diagnosis 10/23/2020 05:25:00 PM [facility] Surgeries/Procedures No Information Results ID Date Data Source [id number] 01/09/2021 11:07:00 AM EDT [facility] Name Value Range Interpretation Code Description Data Jes rce(s) Supporting Document(s) WBC 9.27 x10E3/uL 4.0-10.5 N [facility] RBC 3.74 x10E6/uL 4.20-5.40 L [facility] Hemoglobin 12.0 g/dL 12.0-16.0 N [facility] Hematocrit 34.7 % 37.0-47.0 L [facility] MCV 92.8 fL 81.0-99.0 N [facility] MCH 32.1 pg 27.0-31.0 H [facility] MCHC 34.6 g/dL 32.7-35.6 N [facility] RDW 11.9 % 11.5-14.0 N [facility] Platelet count 312 x10E3/uL 150-450 N [facility] ital MPV 9.7 fl 6.9-9.5 H [facility] Neutrophils 63.6 % 34-64 N [facility] Lymphocytes 27.4 % 25-45 N [facility] Monocytes 7.6 % 1.7-10.6 N [facility] Eosinophils 0.8 % 0.4-7.0 N [facility] Basophils 0.3 % 0.1-2.0 N [facility] Imm. Gran. 0.3 % 0.1-2.0 N [facility] Abs. Neutro. 5.90 x10E3/uL 1.2-7.6 N [facility] Abs. Lymph. 2.54 x10E3/uL 1.0-3.5 [facility] Abs. Otero. 0.70 x10E3/uL 0.1-1.0 N [facility] Abs. Eosin. 0.07 x10E3/uL 0.1-0.7 [facility] Abs. Baso. 0.03 x10E3/uL 0.0-0.1 [facility] Abs. Imm. Gran. 0.03 x10E3/uL 0.0-0.1 N [facility] ANRBC% 0 % 0 N [facility] ID Date Data Source [id number] 10/23/2020 05:25:00 PM [facility] 1 OrderSheet [facility] Emergency Department [address] [place] [address] Phone #: ext- [phone] 10/23/2020 17:18 Patient: KRYS LYONS Sex: F : 1995 Age: 25yWEIGHT:63.5 kg (S) HEIGHT:64 inches (S) BMI:24.0ALLERGIES: NoneCHIEF COMPLAINT: painDIAGNOSIS: Breast lumpLAB ORDERSOrder Description Priority Entered Acknowledged InitialedHCG Serum Qual STAT 17:31 10/23/2020 18:20 Hope Dyson Victoria Wanda ;DIAGNOSTIC STUDY ORDERSOrder Description Priority Entered Acknowledged InitialedMEDICATION/IV/DRIP/FLUID ORDERSOrder Description Priority Entered Acknowledged InitialedMotrin 600 mg PO 18:16 10/23/2020 18:23 KarisX1 dose: 600 mg Germania Marie(NOW x1) ;GENERAL ORDERSOrder Description Priority Entered Acknowledged Initialed[Electronically signed by Shital Dyson (18:57 10/23/2020)][Electronically signed by Germania Marie (21:01 10/23/2020)][Electronically locked by Shital Dyson (18:57 10/23/2020)] Name Value Range Interpretation Code Description Data Jes rce(s) Supporting Document(s) ID Date Data Source [id number] 10/23/2020 05:25:00 PM [facility] 1 Medication Reconciliation Report [facility] Emergency Department [address] [place] [address] Phone #: ext- [phone] 10/23/2020 17:18 Patient: KRYS LYONS Sex: F : 1995 Age: 25yWeight: 63.5 kgHeight/Length: 64 in.BMI: 24.0ALLERGIES: NoneThe patient's Home Medications are listed below:CONTINUE TAKING THE FOLLOWING MEDICATIONS: Vitamins Oral 1 pill, daily, every AMThe source(s) of the original Home Medication information:Not obtained.The following Medications were given to the patient in the Emergency Department:Motrin [PO] PO 600 mg, administered: 18:23 10/23/2020The following Medications were prescribed to the patient:ibuprofen 600 mg tablet Take 1 tablet four times a day as needed for pain for 10 days -- Dispense 40tablet. Refills: 0. Substitution permitted.Pharmacy - [facility] [id number] ; [place] [address]. . -- Germania Marie Name Value Range Interpretation Code Description Data Jes rce(s) Supporting Document(s) ID Date Data Source [id number] 10/23/2020 05:25:00 PM EST [facility] 1 Medication Administration Record [facility] Department [address] [place] [address] Phone #: ext- [phone] 10/23/2020 17:18 Patient: KRYS LYONS Sex: F : 1995 Age: 25yWeight: 63.5 kgHeight/Length: 64 inBMI: 24ALLERGIES: None Date/Time Medication Administered Medication OrderedGiven MOTRIN [PO] (IBUPROFEN) Motrin 600 mg PO X1 dose: 70646:23 10/23/2020 Dose: 600 mg Tablets PO mg (NOW x1)Shital Dyson, Name Value Range Interpretation Code Description Data Jes rce(s) Supporting Document(s) ID Date Data Source [id number] 10/23/2020 05:25:00 PM EST [facility] 1 General Instructions [facility] Emergency Department [address] [place] [address] Phone #: ext- [phone] 10/23/2020 17:18 Patient: KRYS LYONS Sex: F : 1995 Age: 25yBilateral breast masses.INSTRUCTIONS(take motrin for pain. have another breast exam after your menses.).Your Current Medications: Your current home medications have been reviewed.CONTINUE TAKING THE FOLLOWING MEDICATIONS: Vitamins Oral : 1 pill daily, every AM.Prescription M edications:ibuprofen 600 mg tablet Take 1 tablet four times a day as needed for pain for 10 days -- Dispense 40tablet. Refills: 0. Substitution permitted.Pharmacy - [facility] [phone] ; [place] [address]. .Follow-up:Return to the emergency department as needed. Follow up with your healthcare provider in [facility] if notbetter. Reason for referral: evaluation. Summary of care provided to patient via paper. Screening todayrevealed the patient's blood pressure to be in the hypertensive stage 2 range. The patient should follow upwith a primary care provider for blood pressure management. ADDITIONAL INFORMATIONFibrocystic Breast Changes (Presumed)One or more lumps were found in your breasts. These are likely fibrocystic breast changes.With this condition, fibrous tissue and small cysts form in your breasts. They may increase anddecrease in size with your menstrual cycle. Symptoms can include breast lumps that you can see andfeel. You may also have breast pain, swelling, and tenderness.The lumps associated with fibrocystic breast changes are not cancer, and do not lead to cancer. Theyare very common, and affect most women at some point in their lives.Treatment for fibrocystic breast changes is rarely needed. Home care to relieve symptoms may berecommended, though. 2 General Instructions [facility] Emergency Department [address] [place] [address] Phone #: ext- [phone] 10/23/2020 17:18 Patient: KRYS LYONS [facility]#: [id number] Sex: F : 1995 Age: 25yIf confirmation of the diagnosis is desired or needed, further evaluation may be done. This caninclude: Another exam by your healthcare provider or a accounting systems manager Imaging tests, such as a mammogram or ultrasound Biopsy (procedure to remove small tissue samples from the breast lumps)You'll be told more about these tests, if needed.Home care If you are having breast pain: o Take an ztdx-rvj-czfchek pain reliever, if directed to by your provider. o Wear a well-fitted bra or sports bra for extra support. If you have breast pain at night, try wearing the bra during sleep. o Apply a warm compress (towel soaked in warm water) to the breast. You may also use a hot water bottle. Check your breasts each day. Keep a log of whether the lump seems to be changing in size or tenderness with your period. This can help your healthcare provider learn more about your breast condition. Ask your healthcare provider about lifestyle or diet changes or alternative treatments you can try to help treat this condition.Follow-up careFollow with your healthcare provider, or as directed. You may be advised to schedule anotherappointment for a breast exam with your provider or a accounting systems manager about 7 to 10 days after the startof your next period. If fibrocystic breast changes begin to cause symptoms that bother you, tell yourprovider. He or she may recommend other treatments.When to seek medical adviceCall your healthcare provider right away if any of these occur: Fever of 100.4F (38C) or higher Redness or swelling of the breasts Discharge from the nipples Visible changes in the skin over the nipples or breasts 3 General Instructions [facility] Emergency Department [address] [place] [address] Phone #: [phone] mng- [phone] 10/23/2020 17:18 Patient: KRYS LYONS Sex: F : 1995 Age: 25y Lumps grow larger, feel very hard, or have an irregular shape New lumps form that look or feel different from current lumps [id number] [employer]. [address] [place] [address]. All rights reserved. This information is not intended as asubstitute for professional medical care. Always follow your healthcare professional's instructions. You have been given the following additional information: Fibrocystic Breast Changes, Presumed(Electronically signed by Germania Marie 10/23/2020 21:01) Name Value Range Interpretation Code Description Data Jes rce(s) Supporting Document(s) ID Date Data Source [id number] 10/23/2020 05:25:00 PM EST [facility] 1 Clinical Report - Nurses [facility] Department [address] [place] [address] Phone #: ext- [phone] 10/23/2020 17:18 Patient: KRYS LYONS Sex: F : 1995 Age: 25yTRIAGEArrived by private vehicle. Historian: patient. ( Left side breast pain no discharge).Acuity: LEVEL 4.Alert. No acute distress.( Left side breast pain x 3 weeks). --17:29 10/23/20 Dyson, Wanda17:10/23/20. RR: 18. Temp: 99.1 F. --17:29 10/23/20 Dyson, WandaTriage time: 17:10/23/2020.17:10/23/20. --17:34 10/23/20 Dyson, Wandalate entry - 17:10/23/2020 BP: 127/79. HR: 76. RR: 18. O2 saturation: 98%. Temp: 99.1 F. Pain levelnow 01/23. --17:38 10/23/20 Ydson, Wanda17:23 10/23/20.( Left breast pain). --18:53 10/23/20 Dyson, Shital( Left breast pain).17:10/23/20.This started today. --18:54 10/23/20 DysonJacqueline Complaint: LEFT UPPER EXTREMITY PAIN.17:10/23/20.This started today. --18:56 10/23/20 DysonTyda Complaint: (BREAST PAIN).17:10/23/20. --18:57 10/23/20 Dyson, Shital.Weight: 63.5 kg stated. Height/Length: 64 inches Per Patient. BMI: 24. --17:23 10/23/20 Dyson, Shital.MedicationsPrenatal Vitamins Oral 1 pill, daily every AM. --17:33 10/23/20 Dyson, Shital.AllergiesNone. --17:33 10/23/20 Dyson, Shital.PROBLEMS:Hemorrhoids. --17:37 10/23/20 Chanliecco, VictoriaGastroenteritis: RuleOut. 2 Clinical Report - Nurses [facility] [address] [place] [address] Phone #: ext- [phone] 10/23/2020 17:18 [id number] Sex: F : 1995 Age: 25yChest Wall Pain: RuleOut. --17:37 10/23/20 Germania MarieThe following entry was modified by Germania Marie, 17:37 10/23/20Hemorrhoids. --17:33 10/23/20 Dyson, WandaThe following entry was modified by Germania Marie, 17:37 10/23/20Gastroenteritis: RuleOut. --17:33 10/23/20 Dyson, WandaThe following entry was modified by Germania Marie, 17:37 10/23/20Chest Wall Pain: RuleOut. --17:33 10/23/20 Shital Dyson.HistoryPAST MEDICAL HX: Immunizations: up-to-date. Last normal menstrual period- .SOCIAL HX: Never smoker. No alcohol use or drug use. The patient was offered HIV testing butdeclined and hepatitis C testing but declined.SELF HARM ASSESSMENT: Self harm assessment was performed. The patient answered "no" to thequestion(s) "Have you recently felt down, depressed, or hopeless?", "Do you have thoughts of harming orkilling yourself?", "Do you have a plan for harming or killing yourself?", "Have you recently had thoughtsabout harming or killing others?", "Do you have any dangerous items in your possession?", "Have younoticed less interest or pleasure in doing things?", "Are you here because you tried to hurt yourself?" and"Have you ever tried to hurt yourself before today?".ABUSE ASSESSMENT: Abuse assessment. Abuse denied. No suspicion of abuse. No report of abuse.NUTRITIONAL RISK ASSESSMENT: The nutritional risk assessment revealed no deficiencies.FUNCTIONAL ASSESSMENT: Functional assessment: no impairments noted.LEARNING NEEDS ASSESSMENT: The learning needs assessment revealed no barriers.FALL RISK ASSESSMENT: Fall risk assessment completed. No risk factors identified.SKIN INTEGRITY ASSESSMENT: Skin integrity risk assessment completed. No skin integrity riskidentified. --17:29 10/23/20 Karis, Shital17:23 10/23/20.PAST MEDICAL HX: Last normal menstrual period- Sep 27- 2020. --17:31 10/23/20 Shital Dyson17:23 10/23/20.PAST MEDICAL HX: Immunizations: up-to-date.SOCIAL HX: The patient has not traveled outside the [place]Infectious disease exposure: No infectious disease exposure. Patient is not a known carrier of tuberculosis,hepatitis, HIV, MRSA or VRE. Patient is not a known carrier of CRE. --17:34 10/23/20 Shital Dyson. 3 Clinical Report - Nurses [facility] [address] [place] [address] Phone #: ext- [phone] 10/23/2020 17:18 Patient: KRYS LYONS Sex: F : 1995 Age: 25y Interventions To treatment room. --17:29 10/23/20 Shital Dyson.PHYSICAL ASSESSMENTGENERAL / NEURO / PSYCH: Oriented X 4. Alert. Appears in no acute distress.HEENT: Pupils equal, round and reactive to light.SKIN: Skin is warm and dry. --17:39 10/23/20 Shital Dyson.NURSING PROGRESS NOTESCall light placed in reach. Side rails up x 2. Bed placed in lowest position. Brakes of bed on. --17:302 Shital Dyson late entry - 18:00 10/23/20. Reassurance given to the patient (RN at bedside answering pts questions regaurding breast care. patient has many questions and concerns of possible Breast CA). GENERAL / NEURO / PSYCH: Alert. Oriented X 4. Call light placed in reach. --18:49 10/23/20 Shital Dyson 18:15 10/23/20. Rounding: Pain: (pt given motin 600 mg for pain). Personal care / toileting: denies toileting needs. Proximity of possessions / care items: call light within easy reach. --18:50 10/23/20 Shital Dyson 18:23 10/23/2020 Motrin (Ibuprofen) PO Tablets 600 mg given. Allergies verified and confirmed 5 rights. Information reviewed with patient including reason for taki ng this medication, signs of allergic reaction and precautions. Verbalizes understanding. --18:23 10/23/20 Shital Dyson.DISPOSITION / DISCHARGE 18:35 10/23/20. Condition at departure: stable. No learning barriers present. Reviewed medication(s). Prescription(s) sent electronically to pharmacy. Patient verbalized understanding. Written instructions provided in [place]. The patient was discharged by the physician. She was discharged home. She left ambulatory and via private vehicle. Patient driving. --18:52 10/23/20 Shital Dyson 18:35 10/23/2020 BP: 156/90. HR: 92. RR: 18. O2 saturation: 98%. Temp: 98.3 F. Pain level now 09/25. --18:52 10/23/20 Shital Dyson Departure time: 18:35 10/23/2020. --18:52 10/23/20 Shital Dyson.Locked/Released at 10/23/2020 18:57 by Shital Dyson 4 Clinical Report - Nurses [facility] [address] [place] [address] Phone #: qyf- [phone] 10/23/2020 17:18 Patient: KRYS LYONS Sex: F : 1995 Age: 25y Name Value Range Interpretation Code Description Data Jes rce(s) Supporting Document(s) ID Date Data Source [id number] 10/23/2020 05:25:00 PM [facility] 1 Clinical Report - Physicians/Mid Levels [facility] Department [address] [place] [address] Phone #: ext- [phone] 10/23/2020 17:18 Patient: KRYS LYONS Sex: F : 1995 Age: 25y Time Seen: 17:20 10/23/2020; initial patient contact, initial documentation. Arrived- By private vehicle. Historian- patient. Disposition decision: 18:20 10/23/2020.HISTORY OF PRESENT ILLNESS Chief Complaint: left breast pain. This started 3 weeks ago and is still present. At its maximum, severity described as moderate. When seen in the E.D., severity described as moderate. Modifying factors. Not worsened by anything. Not relieved by anything. No loss of appetite, weight loss, headache, visual disturbance or fatigue. No muscle aches or weakness. Denies sleep problem. No decreased urine output. (Patient states thta she has been ahving aching pain on the left breast. patient stopped breast feeding 2 months ago. LMP was 09/27/20. denies shortness of breath. no redness, no nipple discharge. denies history of breast cancer).REVIEW OF SYSTEMSNo fever, sore throat, sinus drainage, cough or difficulty breathing. No chest pain, abdominal pain,nausea, vomiting or diarrhea. No black stools, bloody stools, chills, difficulty with urination or abnormalbleeding. No vaginal discharge, skin rash, back pain, calf pain or headache. No blackouts or doublevision. No difficulty with ambulation. All other systems reviewed and are negative.PAST HISTORYSee nurses notes. Problems: Hemorrhoids. Gastroenteritis [RuleOut]. Chest Wall Pain [RuleOut]. Additional Surgeries: no known surgeries. Medications: Vitamins Oral 1 pill, daily every AM. Allergies: None.SOCIAL HISTORYNever smoker. No alcohol use or drug use.ADDITIONAL NOTESThe nursing notes have been reviewed. 2 Clinical Report - Physicians/Mid Levels [facility] [address] [place] [address] Phone #: ext- [phone] 10/23/2020 17:18 Patient: KRYS LYONS Sex: F : 1995 Age: 25yPHYSICAL EXAMAppearance: Alert. No acute distress.Eyes: Pupils equal, round and reactive to light. Eyes normal inspection.ENT: Ears normal. Nose normal. Pharynx normal.Neck: Normal inspection. Neck supple.CVS: Normal heart rate and rhythm. Heart sounds normal. Pulses normal.Respiratory: No respiratory distress. Painless inspiration. Breath sounds normal. Chest nontender.Right Breast: Diffuse multiple, small, cystic, fixed masses present on exam. No axillary involvement,involvement of area under breast, nipple involvement, erythema present or warmth present. Nolymphangitis present or swelling present.Breast Exam: Forcer Maker present (ed nurse). Normal appearance and contour. Non tender. No rash,ecchymosis, laceration or abrasion. Nipples normal. No discharge.Left Breast: Diffuse multiple, small, cystic, fixed masses present on exam. No axillary involvement,involvement of area under breast, nipple involvement, erythema present or warmth present. Nolymphangitis present or swelling present. Mild diffuse tenderness on exam. No axillary involvement,involvement of area under breast, nipple involvement, erythema present or warmth present. Nolymphangitis present. Normal nipple. No erythema noted. No skin rash, ecchymosis, laceration orabrasion present. No swelling noted, skin lesion present, nipple discharge or areola abnormality.Abdomen: No visible injury. Soft and nontender. Bowel sounds normal. No organomegaly. No mass.Femoral pulses equal.Back: Normal inspection.Skin: Skin warm and dry. Normal skin color. No rash. Normal skin turgor.Extremities: Extremities exhibit normal ROM. No lower extremity edema.Neuro: Oriented X 3.LABS, X-RAYS, AND EKGLaboratory Tests: Beta-HCG, Quant Serum: (MELISSA: 10/23/2020 17:40) ( MsgRcvd 10/23/2020 18:09) Final results Test Result Flag Units (Reference) HCG QUANT <0.5 mIU/mL Interpretation: Less than 5 mU/mL: Negative 6-10 mU/mL: Borderline (suggest repeat in 48 hours) >10: Positive Approx HCG range (mU/mL) Weeks post LMP 5.4-708 mU/mL 3-4 Weeks 217-99555 mU/mL 5-6 Weeks 4059-639103 mU/mL 7-8 Weeks 78598-926759 mU/mL 9-10 Weeks 32867-39358 mU/mL 12-14 Weeks 54496- 42455 mU/mL 15-16 Weeks 8240-64293 mU/mL 17-18 Weeks Beta-HCG, Qual Serum: (MELISSA: 10/23/2020 17:40) ( MsgRcvd 10/23/2020 17:55) Canceled.PROGRESS AND PROCEDURESPatient counseled in person regarding the patient's stable condition, test results, diagnosis and need forfollow-up. Patient agrees with plan of care. 18:19. 3 Clinical Report - Physicians/Mid Levels [facility] Emergency Department [address] [place] [address] Phone #: [phone] 10/23/2020 17:18 Patient: KRYS LYONS Sex: F : 1995 Age: 25y Disposition: Discharged home in good condition (18:20). Condition: good and stable. Discharge decision based on the following: patient's condition is stable; patient's exam is stable; no abnormal test results; stable condition on repeat evaluation; social support is adequate; transportation is available; follow-up is available; clinical impression is consistent with outpatient treatment.CLINICAL IMPRESSION Bilateral breast masses.INSTRUCTIONS (take motrin for pain. have another breast exam after your menses.). Your Current Medications: Your current home medications have been reviewed. CONTINUE TAKING THE FOLLOWING MEDICATIONS: Vitamins Oral : 1 pill daily, every AM. Prescription Medications: ibuprofen 600 mg tablet Take 1 tablet four times a day as needed for pain for 10 days -- Dispense 40 tablet. Refills: 0. Substitution permitted. Pharmacy - [facility] [id number] ; [place] [address]. . Follow- up: Return to the emergency department as needed. Follow up with your healthcare provider in seven if not better. Reason for referral: evaluation. Summary of care provided to patient via paper. Screening today revealed the patient's blood pressure to be in the hypertensive stage 2 range. The patient should follow up with a primary care provider for blood pressure management.(Electronically signed by Germania Marie 10/23/2020 21:01) Name Value Range Interpretation Code Description Data Jes rce(s) Supporting Document(s) ID Date Data Source [id number] 10/23/2020 06:09:00 PM EST [facility] Name Value Range Interpretation Code Description Data [facility] rce(s) Supporting Document(s) Choriogonadotropin.intact [Units/volume] in Serum or Plasma <0.5 mIU/ mL [facility] Interpr etation: Less than 5 mU/mL: Negative 6-10 mU/mL: Borderline (suggest repeat in 48 hours) >10: Positive Approx HCG range (mU/mL) Weeks post LMP 5.4-708 mU/mL 3-4 Weeks 217-49959 mU/mL 5-6 Weeks 4059-383156 mU/mL 7-8 Weeks 23894-834687 mU/mL 9-10 Weeks 99559-21859 mU/mL 12-14 Weeks 35486-32840 mU/mL 15-16 Weeks 8240- 03194 mU/mL 17-18 Weeks Procedure Social History No Information Vital Signs ID Date Data Source UNK Name Value Range Interpretation Code Description Data Source(s) Body weight 145.00 [lb_av] 145.00 [lb_av] [facility] ([facility]) Body mass index (BMI) [Ratio] 24.9 kg/m2 24.9 k g/m2 [facility] ([facility]) [place] body weight 120 [lb_av] 120 [lb_av] [facility] Body weight 65.772 kg 65.772 kg [facility] ([facility]) Body height 64 [in_i] 64 [in_i] [facility] ([facility]) 5'4" Body surface area Derived from formula 1.71 m2 1.71 m2 [facility] ([facility])
[2021-08-03] MEDS ORDERED: LACTATED RINGER'S 1000 ML IV ONE (05:15)
[2021-08-03] MEDS ORDERED: OXYTOCIN DRIP 30 UNITS in IV 1 EA IV PRN (05:15)
[2021-08-03] MEDS ORDERED: METHYLERGONOVINE MALEATE 0.2 MG/ML VIAL (J2210) IM PRN (05:15)
[2021-08-03] MEDS ORDERED: OXYTOCIN INJ 10 UNITS/ML VIAL (J2590) IV PRN (05:15)
[2021-08-03] MEDS ORDERED: OXYTOCIN 30 UNITS IN 0.9% NaCl 500ML IV BAG (J2590) As Ordered ONE (05:26)
[2021-08-03 05:33] LABS: HEMATOCRIT 34.4 % (36.0-47.0); HEMOGLOBIN 11.7 g/dl (12.0-15.5); MEAN CORPUSCULAR HEMOGLOBIN 31.7 pg (27.0-33.0); MEAN CORPUSCULAR VOLUME 93.2 fl (80.0-96.0); PLATELET COUNT, AUTOMATED 202 10^3/uL (150-450); RED BLOOD COUNT 3.69 10^6/uL (4.00-5.40); WHITE BLOOD COUNT 18.3 10^3/uL (4.0-10.0)
[2021-08-03] MEDS ORDERED: FENTANYL 2MCG/ML ROPIVACAINE 0.2% IN 0.9% NACL 100ML IVBAG As Ordered ONE (05:51)
--- NOTE | 2021-08-03 06:12 | HPEPDOC ---
Obstetrical History & Physical General Date of Admission Item Value Date Time White Blood Count 18.3 10^3/uL H 08/03/21 0515 Red Blood Count 3.69 10^6/uL L 08/03/21 0515 Hemoglobin 11.7 g/dl L 08/03/21 0515 Hematocrit 34.4 % L 08/03/2115 Mean Corpuscular Volume 93.2 fl 08/03/21514 Mean Corpuscular Hemoglobin 31.7 pg 08/03/21514 Mean Corpuscular Hemoglobin Concent 34.0 g/dl 08/03/21514 Red Cell Distribution Width 13.2 % 08/03/21514 Platelet Count 202 10^3/uL 08/03/21 0515 Aug 03, 2021 at 04:59 Primary Care Physician: Mike Rosales MD History of Present Illness Vital Signs Label Value Date Time Patient Temperature 97.8 degrees F 08/03/21517 Temperature Source Temporal 08/03/21517 Pulse 100 08/03/21517 Respiratory Rate 20 bpm 08/03/21517 Blood Pressure Assessment 116/73 (87) 08/03/21517 Source Automatic Cuff (NIBP) 08/03/21 ADMITTED ACTIVE LABOR 39.3 WEEKS 2-3 CM WITH PRESSURE NO SROM NO BLEEDING GBS NEGATIVE Chief Complaint: Contractions, term Information Provided By: Patient Age: 25 : 3 Term: 1 Pre-term: 0 Abortions: 1 Livin Care Care: Good Care Number of Visits: 8 Dating Final EDC: Aug 07, 2021 Final EDC for Daily Update: Aug 07, 2021 Final EDC by: LMP LMP: Oct 31, 2020 1st Trimester Date: Mar 21, 2021 Weeks + Days: 14 Estimated Date of Confinement: Aug 07, 2021 EGA at Admission: 39.3 Antepartum Course Diagnos(e)s ACTIVE LABOR AT TERM Height (inches): 64 Pre- weight (lbs.): 147 Admission Weight (lbs.): 182 Change in Weight (lbs.): 35 Past Medical History Past Obstetrical History : Past Obstetrical History: Multigravida Date of Delivery: January 17, 2020 Gestation: 39 Type of Delivery: Spontaneous Vaginal Del. 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: History of STD (CHLAMYDIA) Past Medical History Medical History SIGNIFICANT ANXIETY Surgical History: [place] teeth Family History Significant Family History: Cancer (FATHER COLON) Family History FATHER COLON CANCER Social History Social history NON SMOKER TO AD SIGNIFICANT FOR ANXIETY AND SA X 2 Marital Status: Family situation: Spouse/partner home Psychosocial History: Depression * Smoker: non-smoker Alcohol: Denies Drugs: denies Abuse Violence Screening Have you been hit/kicked/slapp: No Have you been sexually assault: No Imunizations Tdap status: current Influenza Status: needs Allergies Coded Allergies: No Known Allergies (Unverified , 03/18/20) Medications Scheduled Sertraline Hcl (Zoloft) 50 Mg Tablet, 50 MG PO DAILY Physical Examination Physical Examination GENERAL: Alert and oriented times three. BREAST: . ABDOMEN: Gravid and non-tender to touch. FETUS: Is vertex (VTX) by sterile vaginal examination (SVE), fetus is vertex (VTX) by [place]. HEART RATE: Regular rate and rhythm. LUNGS: Clear to auscultation (CTA). EXTREMITIES: No edema. No clonus. Deep tendon reflexes (DTRs) + . Other physical findings NORMOCEPHALIC ATRAUMATIC NECK FULL RANGE MOTION PERRLA CHEST HRR DISTAL PULSES EQUAL FULL LUNGS CTA NO WHEEZE NO RHONCHI BACK NO CVA TENDERNESS ABDOMEN GRAVID SF HEIGHT 40 VERTEX BOWEL SOUNDS NORMAL CERVIX 80% EFFACED -3 STATION BULGING MEMBRANES 4 CM DECLINED AROM CATEGORY 1 WITH VARIABLES SKIN NO RASHES LESIONS OR PRURITUS JOINTS NO ARTHRALGIA MYALGIA NO JOINT PAIN RESPIRATORY NO COMPLAINTS SOB NO GIBBS URO NO INCONTINENCE URGENCY FREQUENCY NO UTI'S DIGESTIVE NO N/V/D/C/F Laboratory Data 24H LABS Laboratory Tests 2 08/03/21 05:15: Pertinent Laboratoy Data Blood Type: A+ RBC Antibody Screen: Negative HIV: Negative Hepatitis B: Negative Rapid Plasma Reagin: Nonreactive Rubella: Immune Varicella: Nonreactive Chlamydia/Gonorrhea: Negative Group B Streptococcus: Negative Quad Screen Test: Declined Cystic Fibrosis: Negative Diag/Inter Therapy ACTIVE LABOR AT TERM Anatomy Ultrasound Ultrasound Date: Mar 21, 2021 Placenta Location: Anterior Normal Anatomy: Yes Placenta Previa: No Estimated Weight (grams): 310 Steroid Therapy Steroid Therapy: No Vaginal Examination Dilation: 4 cm Effacement: 100% Station: -3 Cervical Consistency: Soft Cervical Position: Middle Presentation: Cephalic presentation Assessment Variability: Moderate Accelerations: Positive Decelerations: Variable Heart Patterns: Tachycardia Tocometer Contractions: Yes Frequency: regular Duration: less than 60 seconds Strength: palpated as moderate Assessment/Plan Assessment 25-year-old (G)3 para (P)1 at 39.4 weeks by 14-week ultrasound. Presents to Labor and Delivery (L&D) . 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 Diet: NPO Group B Streptococcus (GBS) [negative]. Labs and intravenous (IV) per unit protocol. Counseled on Pitocin and induction of labor (IOL). Lactated Ringers (LR): Bolus 1000 mL, then at 125 mL/hr. Anticipate [normal spontaneous delivery ()]. C-S as appropriate. Labor and Delivery Counseling REVIEWED VAGINAL DELIVERY WITH POSSIBLE USE OF FORCEPS OR VACUUM FOR OR MATERNAL REASONS WHEN DELIVERY IS NEEDED AND NO IMMINENT. POSSIBLE LACERATIONS TO VAGINA RECTUM SPHINCTER LABIA URETHERA. POSSIBLE NEED FOR CS FOR OR MATERNAL INDICATION WHEN REMOTE DELIVERY AND NEED FOR DELIVERY NOW. RISK OF SURGERY HEMORRHAGE INFECTION PERFORATION REMOTE BLOOD TRANSFUSION REMOTE HYSTERECTOMY FOR LIFE THREATENING BLEEDING ADMISSION TO NICU FOR FOR OBSERVATION . PATIENT EXPRESSED UNDERSTANDING Mike Rosales MD Aug 03, 2021 05:56
[2021-08-03] MEDS ORDERED: EPIDURAL COMMENT XX SCH (07:15)
[2021-08-03] MEDS ORDERED: REFRIGERATOR IV KEYS XX PRN (07:15)
[2021-08-03] MEDS ORDERED: ONDANSETRON 4MG/2ML VIAL IV PRN ×2 (07:15→13:40)
[2021-08-03] MEDS ORDERED: ePHEDrine SULFATE 25 MG/5 ML(5MG/ML) SYRINGE IV PRN (07:15)
[2021-08-03] MEDS ORDERED: diphenhydrAMINE 50MG/ML VIAL (J1200) IV PRN (07:15)
[2021-08-03] MEDS ORDERED: NALOXONE INJ 0.4MG/1ML VIAL (J2310 PER 1MG) IV PRN (07:15)
[2021-08-03] MEDS ORDERED: EPIDURAL/PCA KEYS XX PRN (07:15)
[2021-08-03] MEDS ORDERED: LACTATED RINGER'S 1000 ML IV PRN (07:15)
[2021-08-03] MEDS: FENTANYL/ROPIVACAINE/NACL BAG 100 ML EPIDURAL SCH ×2 (07:23→17:15)
[2021-08-03] MEDS: LR 1,000 ML IV SCH ×2 (08:02→13:15)
--- NOTE | 2021-08-03 08:37 | IPNPDOC ---
Text Note Date of Service The patient was seen on 08/03/21. NOTE 25 yo at 39+3 weeks gestation presented to L&D earlier this AM in early labor. She has a significant history of depression/anxiety and allegedly has attempted suicide twice before. She is on zoloft currently and has been doing well. Otherwise her is uncomplicated. She just recently received an epidural and is comfortable. Chaperoned by RN Vitals - VSS, afebrile, normotensive, non tachycardic General - sitting up in bed, pleasant and conversant, NAD Abdomen - Gravid uterus, no fundal tenderness Cervix - 4/C/-1, AROM performed productive of large amount of clear fluid. FHR tracing - moderate variability and +accels. Sporadic variable decels, not deep. Overall reassuring. Ctx regular Q2-3 minutes. AROM performed per patient request. Continue with current management. All patient questions answered. Frank RUDOLPH,Soumya, I+O VS, Soumya, I+O Laboratory Tests 08/03/21 05:15 Vital Signs Date Time Temp Pulse Resp B/P (MAP) Pulse Ox O2 Delivery O2 Flow Rate FiO2 08/03/21 05:18 97.8 100 20 116/73 (87) ADILENE RAMOS DO Aug 03, 2021 08:36
[2021-08-03] MEDS ORDERED: OXYTOCIN DRIP 30 UNITS in IV 1 EA IV SCH (13:40)
[2021-08-03] MEDS ORDERED: ACETAMINOPHEN TAB 650MG DOSE (2X325MG) PO PRN (13:40)
[2021-08-03] MEDS ORDERED: RHOGAM 300 MCG (1500 IU) INJ (J2790) IM SCH (13:40)
[2021-08-03] MEDS ORDERED: MEASLES,MUMPS,RUBELLA VACCINE INJ (MMR-II) (90707) SC SCH (13:40)
[2021-08-03] MEDS ORDERED: DIBUCAINE 1% OINTMENT 30GM TOP PRN (13:40)
[2021-08-03] MEDS ORDERED: DOCUSATE SODIUM 100MG CAPSULE PO PRN (13:40)
[2021-08-03] MEDS: ACETAMINOPHEN 500 MG TAB PO PRN ×2 (13:55→19:34)
--- NOTE | 2021-08-03 15:52 | DNPDOC ---
[facility] Delivery Note Delivery Note DATE OF DELIVERY: 03Aug2021 PREDELIVERY DIAGNOSIS: 39-3/7 weeks' gestation and labor. POST DELIVERY DIAGNOSIS: Delivered. PROCEDURE: Spontaneous vaginal delivery. OFFICE CLERK ASSISTANT: Apryl Murillo CNM ANESTHESIA: epidural. ESTIMATED BLOOD LOSS: 500 mL. FINDINGS: 8 pound 9 ounce female infant Christoayne, Score 8/9, no nuchal cord. DELIVERY SUMMARY: Patient is a 25-year-old 3 now para 1-0-0-1 who was admitted to labor and delivery for active labor on 03Aug2021. Mary Alice progressed spontaneously to C/C/+2 and made brisk decent with pushing efforts to in OA presentation with restitution to AALIYAH. No nuchal cord was noted after delivery of the head. The right anterior shoulder delivered easily followed by the posterior shoulder and corpus. The infant was placed immediately skin to skin on the maternal abdomen where she was dried and stimulated to cry. Pitocin infusion was initiated per protocol. The cord was clamped x2 and cut after pulsation ceased. The placenta delivered spontaneously in Spann presentation with moderate bleeding and trailing membranes. The vagina and cervix were swept for several small clots, the fundus massaged until firm and bleeding slowed appropriately. Examination revealed a first degree midline laceration with minimal bleeding. 3-O vicryl on CT1 was used and repair completed in the usual fashion. An additional sweep of the vagina and cervix produced several small portions of membrane. Mother and baby entered the recovery phase in stable condition. APRYL MURILLO CNM Aug 03, 2021 15:52
[2021-08-03] MEDS: IBUPROFEN 600MG TAB PO PRN (17:48)
[2021-08-04] MEDS: IBUPROFEN 800 MG TAB PO PRN ×2 (03:12→18:29)
[2021-08-04 05:55] VITALS: BP 100/59
--- NOTE | 2021-08-04 07:05 | IPNPDOC ---
Progress Note Date of Service: Aug 04, 2021 Progress Note 25 yo PPD#1 s/p uncomplicated yesterday early afternoon after being admitted for early active labor. No issues overnight. Baby is in the NICU for treatment for possible maternal chorioamnionitis. Mary Alice reports feeling well this morning. She is ambulating, voiding, tolerating a regular diet. Lochia is minimal. Pain is well controlled. Vitals - VSS, afebrile, normotensive, non tachycardic General - AAOX3, sitting up in bed, pleasant and conversant, NAD Abdomen - Fundus firm at U-1. No fundal tenderness Extremities - No edema UO - appropriate Yosi is doing well and is making an appropriate recovery. No issues. Unsure how concern for chorioamnionitis arose. She was afebrile throughout her intrapartum course. Will continue routine care. Discharge home with baby either tomorrow or the day after. Frank VS, I&O, 24H, Fishbone Vital Signs/I&O Vital Signs Date Time Temp Pulse Resp B/P (MAP) Pulse Ox O2 Delivery O2 Flow Rate FiO2 08/04/21 05:55 97.7 97 16 100/59 (73) I&O- Last 24 Hours up to 6 AM 08/04/21 06:00 Intake Total 2460 ml Output Total 1700 ml Balance 760 ml ADILENE RAMOS DO Aug 04, 2021 07:05
[2021-08-04] MEDS: PRENATAL VITAMINS CHEWABLE TABLET PO SCH (09:54)
[2021-08-04] MEDS: ACETAMINOPHEN 500 MG TAB PO PRN ×2 (09:56→23:54)
[2021-08-04] MEDS ORDERED: HOME MED LIST COMPLETE! XX SCH (17:20)
[2021-08-04 18:00] VITALS: BP 113/72
[2021-08-04 21:00] VITALS: BP 113/72
[2021-08-05] MEDS: IBUPROFEN 600MG TAB PO PRN (05:48)
[2021-08-05 06:00] VITALS: BP 95/55
[2021-08-05] MEDS: PRENATAL VITAMINS CHEWABLE TABLET PO SCH (08:01)
[2021-08-05] MEDS: ACETAMINOPHEN 500 MG TAB PO PRN (08:04)
--- NOTE | 2021-08-05 08:26 | OBDS ---
[facility] Obstetrical Discharge Sum. Obstetrical Discharge Summary Date: Aug 05, 2021 : 3 Term: 2 Pre-term: 0. Abortions: 1 Livin VDRL: ABO Blood Group (A) Rh: Positive Rubella: Immune Sex: Female Weight: pounds (8#9) Anesthesia: Regional Anesthesia A/P, Post Course List any complications Admission diagnosis: Active labor at term Discharge diagnosis: Condition at Discharge: STABLE Discharge Instructions: Home Activity: PELVIC REST FOR 6 WEEKS Diet: REGULAR Medications: AT [place] Follow-up: 6 WK PP Other: Patch for contraception. start after 4 weeks PP. due to increased VTE right PP until 4 weeks PP. had this discussion with patient. PRISCA RAMACHANDRAN MD Aug 05, 2021 08:26
[2021-08-05] MEDS ORDERED: ACET-683 PO (08:31)
[2021-08-05] MEDS ORDERED: IBUP80TA PO (08:31)
== END 2021-08-05 15:30 | disposition home or self-care (01) | DRG 807 ==
LOC: M LDO 04:22 → M LDI 04:59 → M OBS 15:27
PROVIDERS: ADMIT Obstetrics & Gynecology; ATTEND Obstetrics & Gynecology
PROC: 10D17Z9 Manual Extraction of Products of Conception, Retained, Via Natural or Artificial Opening (ICD-10-PCS; principal; 2021-08-03)
PROC: 10E0XZZ Delivery of Products of Conception, External Approach (ICD-10-PCS; 2021-08-03)
PROC: 10907ZC Drainage of Amniotic Fluid, Therapeutic from Products of Conception, Via Natural or Artificial Opening (ICD-10-PCS; 2021-08-03)
DX: O99.344 Other mental disorders complicating childbirth (principal); Z37.0 Single live birth; Z3A.39 39 weeks gestation of pregnancy; F41.9 Anxiety disorder, unspecified; F32.9 Major depressive disorder, single episode, unspecified; O70.0 First degree perineal laceration during delivery; O73.1 Retained portions of placenta and membranes, without hemorrhage